=== PATIENT | female | born 1950 | race Caucasian/White ===

== ENCOUNTER → 2021-12-25 14:17 | Outpatient (BNVA) | payer MEDICARE, SELFPAY | PROVIDERS: Absent Provider Electrodiagnostic Medicine; PCP Family Medicine; Visit Provider Internal Medicine | DX: I11.9 Hypertensive heart disease without heart failure (principal); R06.09 Other forms of dyspnea; R00.2 Palpitations | CPT/HCPCS: 93005; 99204 ==

== ENCOUNTER → 2022-01-02 08:57 | Outpatient (BNVA) | payer MEDICARE, SELFPAY | PROVIDERS: PCP Family Medicine; Visit Provider Internal Medicine | DX: R00.2 Palpitations (principal) | CPT/HCPCS: 93270 ==

== ENCOUNTER → 2022-01-17 10:20 | Outpatient (BNVA) | payer MEDICARE, SELFPAY | PROVIDERS: PCP Family Medicine; Visit Provider Anesthesiology Pain Medicine | DX: M54.12 Radiculopathy, cervical region (principal); M50.90 Cervical disc disorder, unspecified, unspecified cervical region; M79.601 Pain in right arm; M79.602 Pain in left arm; M47.812 Spondylosis without myelopathy or radiculopathy, cervical region; M32.9 Systemic lupus erythematosus, unspecified; M25.50 Pain in unspecified joint; N18.9 Chronic kidney disease, unspecified; Z11.59 Encounter for screening for other viral diseases; Z11.1 Encounter for screening for respiratory tuberculosis; Z79.891 Long term (current) use of opiate analgesic | CPT/HCPCS: 73120; 80053; 80306; 81001; 85025; 85651; 86140; 86160; 86162; 86200; 86235; 86255; 86376; 86480; 86704; 86803; 87340; 99204 ==

== ENCOUNTER → 2022-02-27 13:58 | Outpatient (BNVA) | payer MEDICARE, SELFPAY | PROVIDERS: PCP Family Medicine; Visit Provider Internal Medicine | DX: M32.9 Systemic lupus erythematosus, unspecified (principal); N18.9 Chronic kidney disease, unspecified; M06.9 Rheumatoid arthritis, unspecified | CPT/HCPCS: 99213; 99214 ==

== ENCOUNTER → 2022-06-10 13:34 | Outpatient (BNVA) | payer MEDICARE, SELFPAY | PROVIDERS: PCP Family Medicine; Visit Provider Internal Medicine | DX: M32.9 Systemic lupus erythematosus, unspecified (principal); M25.50 Pain in unspecified joint; M54.2 Cervicalgia; N18.9 Chronic kidney disease, unspecified; R53.83 Other fatigue; Z79.52 Long term (current) use of systemic steroids | CPT/HCPCS: 36415; 72100; 73560; 80053; 81003; 82550; 83735; 84100; 84443; 84550; 85025; 85651; 86140; 99214 ==

== ENCOUNTER 2022-08-14 07:53 | Outpatient (CLI) | payer MEDICARE, SELFPAY ==
--- NOTE | 2022-08-14 | ECG_ITS ---
[facility] Test Date: 2022-08-14 Pat Name: Bibiana Smith Department: Room: Gender: Female Report Clerk: : 1950 Requested By: Panda Mustafa Order Number: [id number] Tanner MD: Panda Mustafa M.D. Interpretive Statements NAME OF STUDY: LEXISCAN SESTAMIBI STRESS TEST INDICATION: [Chest Pain, ] Procedure: At the baseline, the blood pressure was 126/70 mmHg with a heart rate of 76 bpm. The electrocardiogram showed normal sinus rhythm, normal axis with normal ST and T's. The Lexiscan was infused over a period of 20 seconds. A total of 0.4 mg of Lexiscan was infused. The stress phase was continued for a total of 5 minutes. Heart rate was at the end of stress phase was 90 bpm and a blood pressure of 129/65 mmHg. The EKG at the peak infusion revealed normal sinus rhythm with no significant ST-T wave changes. Sestamibi was injected 20 seconds after the Lexiscan infusion. Blood pressure at the end of recovery phase was 140/68 mmHg with a heart rate of 93 bpm. Conclusion: 1. Normal EKG response to Lexiscan infusion 2. No Lexiscan induced chest pain or cardiac arrhythmia. 3. Normal blood pressure and heart rate response. 4. Sestamibi/sestamibi perfusion scan pending; see separate report. Electronically Signed On 09-02-2022 10:36:52 CDT by Panda Mustafa M.D. [email or web address]
--- NOTE | 2022-08-14 08:04 | NMCV_ITS ---
NM tod perf SPECT r/s* [id number] Bibiana Smith Age: 71 Gender: F : 1950 Exam Date: 08/14/2022 08:55 Ordering Phys: Panda Mustafa M.D ([email or web address]) Technologist: HERNANDO Nieves Exam Location: [facility] Indications: SHORTNESS OF BREATH STRESS TEST Please see separate stress test report in [facility] for full findings IMAGE PROTOCOL Rest/Stress 1 Lexiscan Day Radiopharmaceutical Dose (mCi) Administration Site Administered by Rest: Tc-99m 10.5 IV HERNANDO Mayen Sestamibi Stress:Tc-99m 32.4 IV HERNANDO Mayen Sestamibi Rest: 14-Aug-2022 60 Discovery 630 Stress: 14-Aug-2022 30 Discovery 630 0.4mg Lexiscan. Images obtained in supine and prone position. SPECT RESULTS Technical Quality: Excellent Raw Data Analysis: Normal Image Corrections: No attenuation or motion correction applied Summed Stress Score: 4 Summed Rest Score: 1 Summed Difference Score: 3 PERFUSION FINDINGS There is small sized, reversible perfusion defect noted in the inferolateral wall. This is consistent with ischemia in the left circumflex artery territory. FUNCTIONAL RESULTS (calculated via Gated SPECT) Stress Image LV EF (%): 93 Stress EDV (mL):59 TID: 0.82 Stress ESV (mL):4 FUNCTIONAL FINDINGS: There is normal left ventricular systolic function. IMPRESSIONS 1. Abnormal myocardial perfusion imaging with small sized area of ischemia in the left circumflex artery territory. 2. LV systolic function is normal Panda Mustafa MD (Electronically Signed) Final Date: 14 August 2022 11:12 S
[2022-08-14 09:05] VITALS: BMI 30.9
[2022-08-14] MEDS: regadenoson 0.4 Mg/5 ml Syringe IVP (09:35)
[2022-08-14] MEDS: aminophylline 25 mg/mL SDV 10 mL IVP (09:45)
[2022-08-14 10:04] VITALS: BP 142/81; PULSE 86
== END 2022-08-14 07:54 | disposition home or self-care (01) ==
LOC: CDL 07:58
PROVIDERS: PCP Family Medicine; Visit Provider Internal Medicine
DX: R07.9 Chest pain, unspecified (principal); R93.1 Abnormal findings on diagnostic imaging of heart and coronary circulation
CPT/HCPCS: 36415; 78452; 93017; 96374; 96375; A9500; J0280; J2785

== ENCOUNTER 2022-08-21 12:16 | Outpatient (CLI) | payer MEDICARE, SELFPAY ==
[2022-08-21 12:58] LABS: Basophils # 0.1 10^3/uL (0.0-0.1); Eosinophils # 0.2 10^3/uL (0.0-0.8); Eosinophils % 3.5 %; Hematocrit 36.9 % (37.0-47.0); Hemoglobin 12.1 g/dL (11.5-15.3); Lymphocytes # 1.9 10^3/uL (0.8-4.8); Mean Corpuscular HGB Conc 32.8 g/dL (30.0-36.0); Mean Corpuscular Hemoglobin 30.5 pg (28.0-34.0); Mean Corpuscular Volume 92.9 fl (81-99); Monocytes # 0.4 10^3/uL (0.2-0.9); Monocytes % 6.4 %; Neutrophils # 4.27 10^3/uL (1.8-7.7); Nucleated Red Blood Cells % 0 %; Platelet Count 338 10^3/cmm (130-400); Red Blood Count 3.97 10^6/uL (4.1-5.3); Red Cell Distribution Width 13.2 % (12.1-15.1); White Blood Count 6.9 10^3/uL (4.0-10.0)
[2022-08-21 13:14] LABS: INR 0.99 (0.83-1.21); Prothrombin Time (Patient) 13.4 Seconds (12.0-15.1)
[2022-08-21 13:25] LABS: Anion Gap 15.9 (5-19); Blood Urea Nitrogen 22 mg/dL (8-23); Calcium 8.7 mg/dL (8.5-10.5); Carbon Dioxide 27 mmol/L (22-29); Chloride 99 mmol/L (98-107); Glomerular Filtration Rate 49.2 mL/min (90-130); Glucose 139 mg/dL (65-115); Osmolality Calculated 292 mOsm/kg (285-295); Potassium 3.9 mmol/L (3.5-5.1); Sodium 138 mmol/L (136-145)
== END 2022-08-21 12:17 | disposition home or self-care (01) ==
LOC: LAB 12:23
PROVIDERS: PCP Family Medicine; Visit Provider Internal Medicine
DX: I12.9 Hypertensive chronic kidney disease with stage 1 through stage 4 chronic kidney disease, or unspecified chronic kidney disease (principal); N18.9 Chronic kidney disease, unspecified; R58 Hemorrhage, not elsewhere classified
CPT/HCPCS: 36415; 80048; 85025; 85610

== ENCOUNTER 2022-09-02 07:28 | Outpatient (CLI) | payer MEDICARE, SELFPAY ==
[2022-09-02] VITALS (10 sets, daily range): BP systolic 97–151; BP diastolic 58–80; PULSE 69–90; RESP 14–23; TEMP 37.1; O2SAT 89–97; BMI 30.2
[2022-09-02] MEDS: aspirin 325 mg Tablet PO (07:45)
[2022-09-02] MEDS: diphenhydrAMINE 50 mg Capsule PO (07:45)
--- NOTE | 2022-09-02 08:30 | XACV_ITS ---
Exam Room: 2 Ht: 155 cm Wt: 73 kg BSA: 1.79 m2 Gender: Female : 1950 Any Known Allergies: Other Exam Priority: Routine Procedure(s): Procedure Description: Diagnostic procedure Procedure Description: Left Heart Catheterization Procedure Description: Left ventriculography Procedure Description: Coronary Angiography Diagnostic Cath Status: Elective Diagnostic Findings * INDICATION: 71-year-old woman with past medical history of hypertension was been having significant dyspnea on exertion. Stress test was performed that is abnormal showing ischemia in the territory of left circumflex artery. Plan for coronary angiogram with possible PCI. Risks and benefits of the procedure have been discussed with the patient. She understands the risks and benefits and wants to proceed.. * No significant disease noted in the Left Main, Left Anterior Descending, Right, or Circumflex coronary arteries. * Coronary angiography shows right dominance. Conclusions 1. No significant disease noted in the Left Main, Left Anterior Descending, Right, or Circumflex coronary arteries. 2. Normal left ventricular systolic function. Ejection fraction of 65%. Recommendations * Aggressive risk factor modification. * Outpatient cardiology follow up in 4 weeks. Interventional RX Recommendation: medical therapy and/or counseling Diagnostic RX Recommendation: medical therapy and/or counseling Anticoagulation: Heparin Ventriculography Ejection Fraction: 65.0 % Pressures Phase:Rest AO : 144 / 83 ( 108 ) @ 10:16:00 AM 152 / 78 ( 109 ) @ 10:22:00 AM 152 / 78 ( 109 ) @ 10:22:00 AM LV : 149 / -7 / 21 @ 10:21:00 AM 164 / 0 / 28 @ 10:22:00 AM 162 / -2 / 28 @ 10:22:00 AM Valves Phase:DefaultPhase AV : 10.0 @ 9:29:02 AM 10.0 @ 9:29:02 AM AV Mean Gradient: 12.0 @ 9:29:02 AM Clinical Evaluation EBL: 5mL-10mL Procedural Details Procedure Consent Obtained. Admit Source: Out Patient. Pre-Procedure Time Out. Identified patient by full name and date of as verbalized by the patient/guarantor. Does the consent match the physician's order: Yes. Accurate & Complete Informed Consent: Yes. Inpatient/Outpatient History & Physical on Chart: Yes. If H&P is completed, is and addenduem needed: No; If yes, is the addendum complete: N/A. Visualize and Verify Site with Patient/Guarantor: N/A. Relevant Radiology Images available: Yes. The risks, benefits, and alternatives of sedation and/or procedure were discussed by physician. The patient agrees to continue. Procedure started. [facility] Clinical Fraility Score: 3: Managing Well. Rn Transfer Indications: Worsening Angina. Chest Pain Symptom Assessment: Atypical Angina. Current diagnosis: Chest Pain, Abnormal stress test. PERRLA. 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 Lungs clear x 5 lobes. IV Site on Arrival: 20 gauge in the left anticubital. IV Fluids: 0.9% NaCl at 75ml/hr. 0 mL infused prior to recyclable products sorter. Oxygen started at 2liters/min via nasal canula. Pre Procedural Pulses: bilateral dorsalis pedis was 3+. Pre Procedural Pulses: bilateral posterior tibial was 3+. Pre Procedural Pulses: bilateral radial was 3+. right radial was prepped with chloroprep then draped in the usual sterile fashion. right groin was prepped with chloroprep then draped in the usual sterile fashion. Physician notified. Baseline sample Acquired. HR: 82 BPM. Physician arrived. Physician scrubbed in. Immediate Pre-Procedure Time Out. Correct Patient: Yes; Correct Procedure: Yes; Correct Site: Yes; Correct Patient Position: Yes; Correct Supplies: Yes; Dried Flammable Prep: Yes; Blood Products Available: No;. Lidocaine 1% infiltrated to the right radial. Arterial access obtained. A 5 khmer TIG catheter in over wire. Multiple views taken of left coronary artery. Catheter redirected to the RCA. Multiple views taken of right coronary artery. Catheter removed over the exchange wire. A 5 khmer Angled Pig catheter in over wire. EDP Sample taken: LV 149/-8,21; HR: 98 BPM; SpO2: 98%. LV gram performed in ARGUETA @ 10 mL/second for a total of 29 mL. EDP Sample taken: LV 164/-1,28; HR: 96 BPM; SpO2: 98%. Pullback taken: LV 162/-3,28; AO 152/78(109); Mean: 12mmHg, Peak to Peak: 10mmHg, SEP: 26sec/min; HR: 95 BPM; SpO2: 98%. Catheter removed over the exchange wire. Post Procedure: Pulses reassessed and unchanged. PERRLA. 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 No VTE prophylaxis required. Medication's Wasted: Nitro = 49.8 mg. Medication's Wasted: Heparin = 1000 unit. Medication's Wasted: Lidocaine 1% = 3 mL. Total IV fluids: 26 mL. Post-op diagnosis: Non-obstructive CAD. Complications: None. Estimated blood loss: 5mL-10mL. Responsiveness - Normal response to verbal stimuli; alert and oriented, PERRLA. Airway - Unaffected, no intervention required; spontaneous ventilation. Circulation: W/N/L, pulses unchanged. Nausea/Vomiting: No. Procedure completed. A TR Band was successful obtaining hemostatsis at the Right Radial artery insertion site. Patient transferred by wheelchair to CPRU. Vital chart was stopped. Access Site Site: Right Radial artery Sheath Size: 6 Fr Hemostasis Method: TR Band Hemostasis Success: Successful Procedure Medications Start: 9:10 AM Stop: 9:10 AM Medication: Versed Amount: 1 mg Route: I.V. Start: 9:10 AM Stop: 9:10 AM Medication: Fentanyl Amount: 50 mcg Route: I.V. Start: 9:14 AM Stop: 9:14 AM Medication: Nitrogylcerin Amount: 200 mcg Route: I.A. Start: 9:16 AM Stop: 9:16 AM Medication: Versed Amount: 1 mg Route: I.V. Start: 9:16 AM Stop: 9:16 AM Medication: Heparin Amount: 5000 units Route: I.V. I, the attending physician, have reviewed and verified all procedure medications. Yes, all medications given per verbal order History/Risk Factors Hypertension: Yes Dyslipidemia: No Peripheral Arterial Disease (PAD): No Myocardial Infarction (RI): No Obesity: No Renal Disease: No Tobacco Use: Never Prior Interventions PCI: No CABG: No Valve Surgery: No Report Signatures Finalized by Panda Mustafa MD on 09/14/2022 07:16 PM
--- NOTE | 2022-09-02 09:09 | P.HP_ITS ---
Same Day Surgery H&P Indication for Procedure/HPI DATE OF PROCEDURE: September 02, 2022 CHIEF COMPLAINT/INDICATIONFOR SURGICAL PROCEDURE: Dyspnea on exertion/ abnormal stress test PREOP DIAGNOSIS: Dyspnea on exertion/ abnormal stress test PLANNED PROCEDURE: Operation Date: 09/02/22 08:30 Proposed Procedures p [facility] 76004,R94.39, I20.0(Left) - Panda Mustafa M.D Possible percutanoeus coronary intervention 71-year-old woman with past medical history of hypertension was been having significant dyspnea on exertion. Stress test was performed that is abnormal showing ischemia in the territory of left circumflex artery. Plan for coronary angiogram with possible PCI. Risks and benefits of the procedure have been discussed with the patient. She understands the risks and benefits and wants to proceed. Medications/Allergies* Home Medications Medication Instructions Recorded Confirmed Type albuterol sulfate 90 mcg/actuation 2 inh inhalation Q6H PRN Shortness 12/25/21 08/30/22 History breath activated powder inhaler Of Breath alprazolam 0.25 mg tablet (Xanax) 0.25 mg PO TID PRN Anxiety 12/25/21 08/30/22 History cholecalciferol (vitamin D3) 1,250 PO 12/25/21 06/10/22 History mcg (50,000 unit) capsule dicyclomine 10 mg capsule 10 mg PO Q8H PRN Diarrhea 12/25/21 08/30/22 History diltiazem HCl 180 mg 360 mg PO DAILY 12/25/21 08/30/22 History capsule,extended release 24 hr (Cardizem CD) duloxetine 60 mg capsule,delayed 60 mg PO DAILY 12/25/21 08/30/22 History release (Cymbalta) estradiol 0.5 mg tablet (Estrace) 0.5 mg PO DAILY 12/25/21 08/30/22 History fluticasone propionate 50 2 spray intranasal DAILY 12/25/21 08/30/22 History mcg/actuation nasal spray,suspension (Flonase Allergy Relief) glipizide 5 mg tablet 5 mg PO DAILY 12/25/21 08/30/22 History hydrochlorothiazide 25 mg tablet 25 mg PO DAILY PRN Blood Pressure 12/25/21 08/30/22 History hydrocodone 5 mg-acetaminophen 325 1 tab PO Q8H PRN Pain 12/25/21 08/30/22 History mg tablet ipratropium 20 mcg-albuterol 100 1 puff inhalation Q6H 12/25/21 08/30/22 History mcg/actuation mist for inhalation (Combivent Respimat) ipratropium bromide 0.02 % 2.5 ml inhalation Q6H PRN 12/25/21 08/30/22 History solution for inhalation Shortness Of Breath levothyroxine 150 mcg tablet 150 mcg PO DAILY 12/25/21 08/30/22 History losartan 50 mg tablet (Cozaar) 50 mg PO BID 12/25/21 08/30/22 History melatonin 5 mg sublingual tablet 5 mg sublingual DAILY 12/25/21 08/30/22 History montelukast 10 mg tablet 10 mg PO DAILY 12/25/21 08/30/22 History (Singulair) naloxone 4 mg/actuation nasal 1 spray intranasal Q2M 12/25/21 08/30/22 History spray (Narcan) omeprazole 20 mg capsule,delayed 20 mg PO BID 12/25/21 08/30/22 History release paroxetine HCl 40 mg tablet (Paxil) 40 mg PO DAILY 12/25/21 08/30/22 History simvastatin 20 mg tablet (Zocor) 20 mg PO DAILY 12/25/21 08/30/22 History aspirin 81 mg capsule 81 mg PO DAILY 08/30/22 08/30/22 History Allergies/Adverse Reactions Allergy/AdvReac Type Severity Reaction Status Date / Time meperidine [From Demerol] Allergy Unknown Verified 09/02/22 08:16 prochlorperazine Allergy Unknown Verified 09/02/22 08:16 [From Compazine] Current Medications: Generic Name Dose Route Start Last Admin Trade Name Freq PRN Reason Stop Dose Admin Sodium Chloride 1,000 mls @ 50 mls/hr 09/02/22 07:30 09/02/22 08:09 Sodium Chloride 0.9% IV 09/03/22 03:29 Not Given .Q20H ONE Pertinent History/Comorbid Conditions* Medical History (Updated 01/17/22 @ 13:24 by Tulio Vance MD) HTN (hypertension) Palpitations Family History (Updated 12/25/21 @ 14:45 by Miri Ballard RN) CHF (congestive heart failure) Mother Father Heart attack Mother Sister Social History Smoking and tobacco status: never smoked Pertinent Exam Findings alert, oriented x 3, clear to auscultation bilaterally and regular rate & rhythm Conscious Sedation Assessment PATIENT ASSESSED PRIOR TO SEDATION, WITH NO CHANGE NOTED: Yes AIRWAY EVAL/ANESTHESIA PLAN: normal airway, ASA III, Local Anesthesia, Risks, benefits & alternatives of sedation and/or procedure discussed and Patient agrees to continue as planned ADDITIONAL INFORMATION: Moderate sedation Recommendations Surgery/Procedure today (Left heart cath with possible percutaneous coronary intervention.) Coding Level of Care Code Acute Code for Chg Fwd Diagnoses
--- NOTE | 2022-09-02 12:52 | PC.NURSE ---
1105: TR Band Removed from patients right wrist. No drainage or hematoma noted. Cleaned around site with soap and water, covered puncture site with band-aid. Vitals stable. No c/o pain or discomfort. Will continue to monitor. 1210: Discharge orders received. Dsg on patients right wrist clean, dry, et intact. No drainage or hematoma noted. Vitals stable. No c/o pain or discomfort. Post cardiac cath education given to patient and spouse. Patient verbalized understanding of all teaching. Follow-up appointment made with SABAS Rogers. IV removed. Patient discharged from CPRU to home with spouse in private vehicle.
== END 2022-09-02 12:25 | disposition home or self-care (01) ==
PROVIDERS: PCP Family Medicine; Visit Provider Internal Medicine
DX: R94.39 Abnormal result of other cardiovascular function study (principal); R06.09 Other forms of dyspnea; Z79.82 Long term (current) use of aspirin; Z79.891 Long term (current) use of opiate analgesic; I10 Essential (primary) hypertension
CPT/HCPCS: 36415; 93458; 96361; 96365; 99152; 99153; C1769; C1887; C1894; J1644; J2250; J3010; J3490; J7030; Q0163; Q9967

== ENCOUNTER → 2022-09-12 08:48 | Outpatient (BNVA) | payer MEDICARE, SELFPAY | PROVIDERS: PCP Family Medicine; Visit Provider Nurse Practitioner Family | DX: I25.10 Atherosclerotic heart disease of native coronary artery without angina pectoris (principal); M79.605 Pain in left leg; I10 Essential (primary) hypertension | CPT/HCPCS: 36415; 80048; 99214 ==